=== PATIENT | male | born 1965 | race Caucasian/White ===

== ENCOUNTER 2024-02-27 20:18 | Emergency (ER) | payer SELFPAY ==
[~2024-02-27] VITALS: Ht 175.3 cm; Wt 82.0 kg
[2024-02-27 20:22] VITALS: O2SAT 99
[2024-02-27] MEDS ORDERED: LIDOCAINE HCL/PF 1% 10 MG/ML 5ML VIAL INFIL ONE (21:45)
[2024-02-27] MEDS ORDERED: BACITRACIN ZINC OINT UDPKT TOP ONE (21:45)
[2024-02-27 22:46] VITALS: BP 138/69; PULSE 83; RESP 17; TEMP 97.3
== END 2024-02-27 22:46 | disposition home or self-care (01) ==
LOC: ER 20:18
DX: S01.511A Laceration without foreign body of lip, initial encounter (principal); Y04.0XXA Assault by unarmed brawl or fight, initial encounter; Y93.89 Activity, other specified; Y92.89 Other specified places as the place of occurrence of the external cause; Y99.8 Other external cause status
CPT/HCPCS: 40650; 99284; 70450; 70486; J3490; 12011